=== PATIENT | female | born 1995 | race Caucasian/White ===

== ENCOUNTER 2019-11-19 10:15 | Emergency (ER) | payer OTHER, MEDICAID, SELFPAY ==
[2019-11-19 10:21] VITALS: BP 122/72; PULSE 98; RESP 16; TEMP 36.8; O2SAT 100
--- NOTE | 2019-11-19 10:27 | ED_ITS ---
HPI - Recheck/Abnormal Lab/Rx General Chief Complaint: Recheck/Abnormal Lab/Rx Stated Complaint: removal of stitches in leg Time Seen by Provider: 11/19/19 10:27 Source: patient Mode of arrival: Ambulatory Limitations: no limitations History of Present Illness HPI narrative: This is a 24-year-old female comes for suture removal. She had stitches placed 7 days ago at [facility]. Patient has had any issues or complications. No signs of infection. Related Data Allergies Allergy/AdvReac Type Severity Reaction Status Date / Time No Known Drug Allergies Allergy Verified 11/19/19 10:23 Review of Systems Review of Systems ROS Unobtainable: All systems reviewed & are unremarkable except as noted in HPI and below Patient History Social History Smoking Status: Never smoker Smoking Status: Never smoker alcohol intake frequency: 0-2 drinks per day Substance Use Type: does not use Exam Narrative Exam Narrative: GENERAL: Alert and oriented x three, well-nourished, well- appearing female in no acute distress. HEENT: Head normocephalic, atraumatic, EOMI, face symmetric, moist mucous membranes NECK: Supple, full range of motion EXTREMITIES: Normal range of motion, no clubbing or edema. Neurovascularly intact. Patient has a healing incision the right lower leg below the knee the lateral side. There were #8 sutures which were removed here in the department. No erythema, drainage or signs of infection. NEUROLOGICAL: Cranial nerves II through XII grossly intact. Moving all extremities SKIN: Warm, dry, no petechiae, no rashes or lesions. Initial Vital Signs Initial Vital Signs: Vital Signs Temperature 98.2 F 11/19/19 10:21 Pulse Rate 98 H 11/19/19 10:21 Respiratory Rate 16 11/19/19 10:21 Blood Pressure 122/72 11/19/19 10:21 Pulse Oximetry 100 11/19/19 10:21 Course Vital Signs Vital signs: Vital Signs - 8 hr 11/19/19 10:21 Temperature 98.2 F Pulse Rate 98 H Respiratory Rate 16 Blood Pressure 122/72 Pulse Oximetry 100 MDM - Recheck/Abnormal Lab/Rx [facility] Narrative Medical decision making narrative: Patient had #8 sutures removed. Tolerated procedure well. Discharge Plan Departure Patient Disposition: Home Clinical Impression: Encounter for removal of sutures Discharge Date/Time: 11/19/19 10:40 Instructions: DI for Suture Removal Activity Restrictions/Additional Instructions: Wound Care: Keep wound(s) clean and dry. Wash daily with soap and water only. Do not use over the counter products (alcohol or peroxide)on the wounds unless instructed by a physician, you may use a topical antibiotic if needed. Once the skin is completely healed I would recommend putting sunscreen or protecting from the sun with physical barrier such as close to prevent hypo or hyperpigmentation. If wound condition worsens (increased/expanding redness, developing fluid blisters, or worsening pain), either contact your doctor for an urgent re- assessment , or return to the Emergency Department.
== END 2019-11-19 10:40 | disposition home or self-care (01) ==
PROVIDERS: Emergency Provider Emergency Medicine
DX: Z48.02 Encounter for removal of sutures (principal)
CPT/HCPCS: 99281